=== PATIENT | female | born 1990 | race Caucasian/White ===

== ENCOUNTER 2016-09-06 23:19 | Emergency (ER) | payer BC ==
[2016-09-06] MEDS ORDERED: Sodium Chloride 0.9% 1,000 ML PRIMARY IV ONE (23:28)
[2016-09-06] MEDS ORDERED: ONDANSETRON 4 MG/2 ML VIAL IVP ONE (23:28)
[2016-09-06] MEDS ORDERED: NORMAL SALINE 10 ML SYRINGE FLUSH IVP PRN (23:54)
[2016-09-07 00:44] LABS: BASOPHILS # (AUTO) 0.03 10*3/UL; BASOPHILS % (AUTO) 0.3 % (0-1); EOSINOPHILS # (AUTO) 0.06 10*3/UL; EOSINOPHILS % (AUTO) 0.6 % (0-8); HEMATOCRIT 42.3 % (37.0-47.0); HEMOGLOBIN 14.8 g/dL (12.0-16.0); MEAN CORPUSCULAR VOLUME 85.8 FL (81-99); MEAN PLATELET VOLUME 9.3 FL (7.4-12.2); MONOCYTES # (AUTO) 0.72 10*3/UL (0.3-0.8); MONOCYTES % (AUTO) 7.7 % (5-15); NEUTROPHILS % (AUTO) 83.7 % (50-80); RED BLOOD COUNT 4.93 10^6/uL (4.20-5.40)
[2016-09-07 00:45] LABS: PLATELET MORPHOLOGY COMMENT NORMAL MORPHOLOGY (NORM); RBC MORPHOLOGY COMMENT NORMAL MORPHOLOGY (NORM); WBC MORPHOLOGY COMMENT NORMAL MORPHOLOGY (NORM)
[2016-09-07 00:53] LABS: BLOOD UREA NITROGEN 11 mg/dL (7-22); BUN/CREATININE RATIO 18.33 (6-20); CALCIUM 9.3 mg/dL (8.7-10.7); EST GLOMERULAR FILTRATION > 60 (>60 ml/min/1.73m(2)); LIPASE 52 IU/L (23-300); SERUM ALBUMIN 4.3 g/dL (3.5-4.8)
[2016-09-07 00:53] LABS: BILIRUBIN,URINE NEGATIVE (NEG); COLOR,URINE YELLOW; GLUCOSE, URINE (UA) NEGATIVE (NEG); NITRATE,URINE POSITIVE (NEG); OCCULT BLOOD,URINE NEGATIVE (NEG); PH,URINE 5.5 (5.0-8.5); PROTEIN,URINE NEGATIVE (NEG); UROBILINOGEN,URINE 0.2 EU/dL (0.2)
[2016-09-07 00:54] LABS: CLARITY,URINE SLIGHTLY CLOUDY (CLEAR)
[2016-09-07 00:58] LABS: BACTERIA,URINE MANY; RENAL EPITHELIAL CELLS,URINE FEW; SQUAMOUS EPITHELIAL CELL,UR MODERATE; URINE CRYSTALS FEW; URINE SAMPLE TYPE CLEAN CATCH URINE
[2016-09-07] MEDS ORDERED: cefTRIAXone Inj 1 GM in Sodium Chloride 0.9% 100 ML IV ONE (01:27)
--- NOTE | 2016-09-07 01:36 | PDOC ---
General Adult HPI - General Chief Complaint: Nausea / Vomiting / Diarrhea Stated Complaint: Nausea and vomitting Date Seen by Provider: 09/07/16 Time Seen by Provider: 01:28 - History of Present Illness Initial Comment: Patient's rash 25-year-old woman who presents to the emergency department with nausea and vomiting. She states that her nausea vomiting came on today after she had an appointment with test design engineer and had her eyes anesthetized topical drop. She apparently is recently had a permanent contact lens placed in her eyes and has had some substantial glaucoma since that time. Her pressure was apparently not alarming in the visit that she had with her provider today. She's not sure if the vomiting and abdominal symptoms she has related to this visit or whether it's independent of anything going on with her eyes. She does have a little epigastric discomfort nothing particularly bad. She doesn't have risk factors for pancreatitis. She still has her gallbladder does not have her appendix. Have you received a tetanus shot in the past 10 years?: Unknown - Patient Home Medications Home Medications: Home Medications Etonogestrel [Nexplanon] 68 mg SUBCUT each 05/24/16 Ondansetron [Ondansetron Odt] 1 tab PO Q6H PRN #20 tab 06/21/16 - Patient Allergies Allergies/Adverse Reactions: Allergies Allergy/AdvReac Type Severity Reaction Status Date / Time Sulfa (Sulfonamide Allergy Intermediate HIVES Verified 09/07/16 00:12 Antibiotics) Past Medical History - heen HEENT History: Glaucoma, Other (please comment) (Recent difficulties status post her eye surgery) Past Medical History Reviewed: Reviewed - No Changes ROS - Limitations ROS Limitations: No Limitations Constitution: DENIES: Chills, Fever Cardiovascular: DENIES: Chest Pain Respiratory: REPORTS: Denies Resp Symptoms Neurological: DENIES: Confusion, Headache Gastrointestinal: REPORTS: Nausea, Vomitting Eyes: DENIES: Eye Pain General Adult Exam - General Appearance General Appearance: POSITIVE: Alert, Cooperative, No Acute Distress - HEENT HEENT: POSITIVE: Head Inspection Nml - Neck Neck: POSITIVE: Normal Inspection - Respiratory Respiratory: POSITIVE: No Respiratory Distress, Breath Sounds Normal - Cardiovascular Cardiovascular: POSITIVE: Regular Rate & Rhythm, No Murmur - Abdomen Additional Abdominal Details: Abdomen is palpated throughout she does have some vague epigastric tenderness no substantial right upper quadrant tenderness or right lower quadrant tenderness. - Skin Skin: POSITIVE: Normal Color, Warm - Neurological / Psychological Neurological: POSITIVE: Affect Apporpriate, Oriented X3 General Adult Progress - Results Reviewed by me Lab Results Reviewed: Yes Lab Results:: Laboratory Results 09/07/16 09/07/16 Range/Units 00:37 00:45 WBC 9.33 (4.8-10.8) 10^3/uL RBC 4.93 (4.20-5.40) 10^6/uL Hgb 14.8 (12.0-16.0) g/dL Hct 42.3 (37.0-47.0) % MCV 85.8 (81-99) FL MCH 30.0 (27-31) PG MCHC 35.0 (33-37) g/dL RDW Std Deviation 37.6 L (39-50) fL RDW Coeff of Chase 12.2 (11.5-14.5) % Plt Count 298 (140-350) 10*3/uL MPV 9.3 (7.4-12.2) FL Immature Gran % (Auto) 0.2 (0-5) % Neut % (Auto) 83.7 H (50-80) % Lymph % (Auto) 7.5 L (10-50) % Stearns % (Auto) 7.7 (5-15) % Eos % (Auto) 0.6 (0-8) % Baso % (Auto) 0.3 (0-1) % Immature Gran # (Auto) 0.02 10*3/UL Neut # (Auto) 7.80 10*3/UL Lymph # (Auto) 0.70 10*3/uL Stearns # (Auto) 0.72 (0.3-0.8) 10*3/UL Eos # (Auto) 0.06 10*3/UL Baso # (Auto) 0.03 10*3/UL WBC Morphology Comment Normal morphology (NORM) Plt Morphology Comment Normal morphology (NORM) RBC Morph Comment Normal morphology (NORM) Sodium 137 (135-145) meq/L Potassium 3.7 L (3.8-5.2) meq/L Chloride 105 (98-112) meq/L Carbon Dioxide 20 L (23-33) meq/L Anion Gap 12 (5-20) BUN 11 (7-22) mg/dL Creatinine 0.6 (0.50-1.20) mg/dL Estimated GFR > 60 (>60 ml/min/1.73m(2)) BUN/Creatinine Ratio 18.33 (6-20) Glucose 95 (78-110) mg/dL Calculated Osmolality 282.0 (267-292) mOsm/kg Calcium 9.3 (8.7-10.7) mg/dL Total Bilirubin 2.9 H (0.3-1.2) mg/dL AST 19 (8-39) IU/L ALT 25 (9-52) IU/L Alkaline Phosphatase 66 (38-126) IU/L Total Protein 7.3 (6.1-8.0) g/dL Albumin 4.3 (3.5-4.8) g/dL Globulin 3.0 (2.50-4.10) g/dL Albumin/Globulin Ratio 1.40 (1.3-2.0) mg/g Lipase 52 (23-300) IU/L Serum HCG, Qual Negative Ur Collection Type Clean catch urine Urine Color Yellow Urine Clarity Slightly cloudy (CLEAR) Urine pH 5.5 (5.0-8.5) Ur Specific Horatio 1.020 (1.005-1.030) Urine Protein Negative (NEG) mg/dl Urine Glucose (UA) Negative (NEG) mg/dL Urine Ketones 15 (NEG) Urine Occult Blood Negative (NEG) Urine Nitrate Positive H (NEG) Urine Bilirubin Negative (NEG) Urine Urobilinogen 0.2 (0.2) EU/dL Ur Leukocyte Esterase Negative (NEG) Urine RBC None (NONE) /hpf Urine WBC 1-3 (NONE) Ur Squamous Epith Cells Moderate (NONE) Ur Renal Epithelial Cell Few (NONE) Urine Crystals Few Urine Bacteria Many (NONE) Urine Casts None (NONE) Urine Mucus Many (NONE) Urine Trichomonas None (NONE) Urine Yeast None (NONE) Ur Culture Indicated? Culture set - Patient's Progress MDM / ED Course: Labs are consistent with a urinary tract infection also possible Gilbert's syndrome. Otherwise labs look really very good. She does have a mild decrease in her potassium but she was vomiting so this is expected. She is feeling better after some treatment. I am any overdose Rocephin and then start her on Keflex for UTI. I've encouraged her to see her primary care provider tomorrow also to call her eye doctor tomorrow especially if she is continuing to have some symptoms to see if she can get her intraocular pressure checked. Patient Care Time - Estimated PCT Patient Care Time (In Minutes): 35 Vital Signs - VS Reviewed Vital Signs Reviewed: Yes Discharge Clinical Impression: Nausea and vomiting Urinary tract infection Qualifiers: Urinary tract infection type: acute cystitis Hematuria presence: without hematuria Qualifier Code: (N30.00) Acute cystitis without hematuria Discharge Disposition: Discharged to Home Patient Instructions Given at Discharge: Urinary Tract Infection in Women (ED) , Acute Nausea and Vomiting (ED) Additional Instructions: Monitor symptoms closely. If you persistent having symptoms tomorrow please call both your eye doctor and your primary care provider and arrange follow-up for tomorrow. You may need to have your intraocular pressure checked again. We will also need to follow your urine culture along to make sure the Keflex that is ordered for you will be effective against whatever organism may be growing. Take Keflex as directed Return to the emergency department for any increasing symptoms or any other concerns.
[2016-09-07 01:44] VITALS: RESP 18; TEMP 98
== END 2016-09-07 02:10 | disposition home or self-care (01) ==
LOC: ER 23:19
DX: N30.00 Acute cystitis without hematuria (principal); R10.13 Epigastric pain; R11.2 Nausea with vomiting, unspecified
CPT/HCPCS: 36415; 80053; 81001; 81003; 83690; 84703; 85025; 87077; 87088; 87186; 96361; 96365; 96375; 99282; 99283; J0696; J2405; J7030; J7050

== ENCOUNTER → 2016-12-15 | Outpatient (CLI) | payer BC ==
[2016-12-15 12:02] LABS: BILIRUBIN,URINE NEGATIVE (NEG); CLARITY,URINE CLEAR (CLEAR); COLOR,URINE YELLOW; GLUCOSE, URINE (UA) NEGATIVE (NEG); NITRATE,URINE POSITIVE (NEG); OCCULT BLOOD,URINE MODERATE (NEG); PH,URINE 6.5 (5.0-8.5); PROTEIN,URINE NEGATIVE (NEG); UROBILINOGEN,URINE 0.2 mg/dL (0.2)
[2016-12-15 12:05] LABS: RBC,URINE 0-2 /hpf; SQUAMOUS EPITHELIAL CELL,UR FEW; URINE SAMPLE TYPE VOIDED SPECIMEN; WBC,URINE 0-3
[2016-12-15 12:06] LABS: BACTERIA,URINE MANY
== END ==
LOC: LAB 11:53
PROVIDERS: ATTEND Student in an Organized Health Care Education/Training Program
DX: R39.15 Urgency of urination (principal)
CPT/HCPCS: 81001; 87077; 87088; 87186